=== PATIENT | male | born 1980 | race Caucasian/White ===

== ENCOUNTER → 2021-04-01 | Outpatient (CLI) | payer OTHER ==
--- NOTE | 2021-04-05 16:03 | SLEEPCENT ---
DATE: 04/01/2021 ORDERED BY: ANDRES Hernandez Nocturnal polysomnography was performed for evaluation of sleep physiology in this patient with a history of snoring and marginal home sleep test results. Seven hours and 28 minutes of data were reviewed. There were 334.5 minutes of sleep identified. Sleep latency was prolonged at 60.5 minutes. REM latency was mildly prolonged at 1106 minutes. Sleep architecture showed fragmentation. There were four REM cycles noted. Overall sleep efficiency was 75.3%. The electrocardiogram showed a sinus rhythm with an average heart rate of 65 beats per minute. Occasional unifocal ventricular ectopic beats were noted. Heart rate range was 58-82. EEG showed reasonably normal waveforms for wake and sleep. There were 27 respiratory events identified of 10 seconds in duration or greater for an apnea-hypopnea index of 5.1. The events were not exclusive to sleep stage nor body posture. Arousals from respiratory events occurred 4.5 times per hour, and oxygen desaturations were seen to 90%. There was some minor limb activity noted in the EMG leads, one train of 30 events. Limb movement arousal index was 4.3. Snoring was appreciated over the entire study. IMPRESSION: Obstructive sleep apnea syndrome (G47.33). Apnea-hypopnea index 5.1. RECOMMENDATION: The patient should be encouraged to return to [facility] for [facility]. In the interim, alcohol and sedative avoidance should be practiced and caution exercised during the operation of motor vehicles. cc: Ariadne Ace MD
== END ==
LOC: M SLEEP 15:35
PROVIDERS: ATTEND Nurse Practitioner Family
DX: G47.33 Obstructive sleep apnea (adult) (pediatric) (principal)

== ENCOUNTER → 2022-04-14 | Outpatient (CLI) | payer BC, OTHER | LOC: M SLEEP 20:00 | PROVIDERS: ATTEND Nurse Practitioner Family | DX: G47.33 Obstructive sleep apnea (adult) (pediatric) (principal) ==